=== PATIENT | female | born 1955 | race Caucasian/White ===

== ENCOUNTER 2024-09-21 06:19 | Day surgery (SDC) | payer OTHER, SELFPAY ==
[2024-09-21 07:49] LABS: Glucose - Point of Care 85 mg/dl (70-99)
== END 2024-09-21 09:30 | disposition home or self-care (01) ==
LOC: GI 06:19
PROVIDERS: ATTENDING PHYSICIAN Internal Medicine Gastroenterology
DX: D50.9 Iron deficiency anemia, unspecified (principal); K64.8 Other hemorrhoids; K44.9 Diaphragmatic hernia without obstruction or gangrene; K31.89 Other diseases of stomach and duodenum
CPT/HCPCS: 45378; 43239; 88305; 82962; 88342

== ENCOUNTER → 2024-09-25 08:46 | Outpatient (REF) | payer OTHER, SELFPAY | LOC: HWRAD 08:46 | PROVIDERS: ATTENDING PHYSICIAN Internal Medicine Gastroenterology; FAMILY PHYSICIAN Family Medicine | DX: R79.89 Other specified abnormal findings of blood chemistry (principal) | CPT/HCPCS: 76700 ==

== ENCOUNTER → 2025-04-03 08:54 | Outpatient (REF) | payer OTHER, SELFPAY | LOC: RAD 08:54 | PROVIDERS: ATTENDING PHYSICIAN Family Medicine | DX: M89.8X8 Other specified disorders of bone, other site (principal) | CPT/HCPCS: 71250 ==